=== PATIENT | male | born 1960 | race Caucasian/White ===

== ENCOUNTER 2017-02-09 17:51 | Emergency (ER) | payer BC ==
[2017-02-09] MEDS ORDERED: METHYLPREDNISOLONE INJ 125 MG/2 ML SDV ONE (18:26)
[2017-02-09] MEDS ORDERED: DIPHENHYDRAMINE HCL 50 MG/ML VIAL ONE (18:26)
[2017-02-09] MEDS ORDERED: EPINEPHRINE INJ/PF 1 MG/1 ML AMPULE IM PRN (18:28)
[2017-02-09] MEDS ORDERED: NORMAL SALINE 1000 ML 1,000 ML IV PRN ×2 (18:29→19:04)
[2017-02-09] MEDS ORDERED: MAGNESIUM SULFATE/D5W 100 ML IV ONE ×2 (18:29→19:31)
[2017-02-09] MEDS ORDERED: FAMOTIDINE INJ/PF 20 MG/2 ML SDV IV ONE (18:38)
[2017-02-09] MEDS ORDERED: IPRATROPIUM/ALBUTEROL 0.5-2.5 MG/3 ML AMPUL NEB ONE ×2 (18:43→19:31)
--- NOTE | 2017-02-09 19:37 | ER Document Report ---
ED Allergic Reaction - General Chief Complaint: Allergic Reaction Stated Complaint: SWELLING OF TONGUE Time seen by provider: 18:30 Mode of Arrival: Ambulatory Information source: Patient Notes: This is a 56-year-old man that presents to the emergency room with swelling of the tongue. The patient does have a history of COPD and intolerance to peanuts in the past (no history of anaphylaxis secondary to peanuts). Patient was at the [facility] yesterday and was eating peanuts. The patient states he felt fine at that time. He went to sleep at approximately 11 PM and felt fine. At one in the morning, he started having some tingling and pain on the left side of the tongue. The symptoms seemed to progress throughout the day. Shortly before arrival, he stated that his tongue felt very swollen and he couldn't swallow. - HPI Onset: Just prior to arrival Onset/Duration: Gradual Quality of pain: No pain Severity: None Pain Level: Denies Identified cause: No Swelling: Tongue Trouble swallowing / speaking: Moderate Associated symptoms: None Similar symptoms previously: No Recently seen / treated by doctor: No - Related Data Allergies/Adverse Reactions: bee stings Allergy (Uncoded 02/09/17 19:00) Past Medical History - General Information source: Patient - Social History Smoking Status: Current Every Day Smoker Cigarette use (# per day): Yes - half a pack per day Chew tobacco use (# tins/day): No Frequency of alcohol use: Occasional Drug Abuse: None Lives with: Spouse/Significant other Family History: None Patient has suicidal ideation: No Patient has homicidal ideation: No - Past Medical History Cardiac Medical History: Reports: None Pulmonary Medical History: Reports: Hx COPD EENT Medical History: Reports: None Neurological Medical History: Reports: None Endocrine Medical History: Reports: None Renal/ Medical History: Reports: None Malignancy Medical History: Reports None GI Medical History: Reports: None Musculoskeltal Medical History: Reports None Skin Medical History: Reports None Psychiatric Medical History: Reports: None Traumatic Medical History: Reports: None Infectious Medical History: Reports: None Surgical Hx: Negative - Immunizations Hx Diphtheria, Pertussis, Tetanus Vaccination: Yes Review of Systems - Review of Systems Constitutional: No symptoms reported. denies: Chills, Fever EENT: See HPI Cardiovascular: No symptoms reported Respiratory: See HPI Gastrointestinal: No symptoms reported Genitourinary: No symptoms reported Male Genitourinary: No symptoms reported Musculoskeletal: No symptoms reported Skin: No symptoms reported Hematologic/Lymphatic: No symptoms reported Neurological/Psychological: No symptoms reported Physical Exam - Vital signs Vitals: Pulse Ox 98 02/09/17 18:15 Notes: Physical exam: GENERAL: 56-year-old man, alert and oriented 3, apprehensive, HEAD: Atraumatic, normocephalic. EYES: Pupils equal round and reactive to light, extraocular movements intact, sclera anicteric, conjunctiva are normal. ENT: Swelling of the tongue, swelling of the floor the mouth. No uvula swelling or deviation. No stridor. No tenderness in the submental spaces. NECK: No fullness to the submental spaces. Normal range of motion, supple without lymphadenopathy or JVD. LUNGS: Breath sounds clear to auscultation bilaterally and equal. No wheezes rales or rhonchi. HEART: Regular rate and rhythm without murmurs, rubs or gallops. ABDOMEN: Soft, normoactive bowel sounds. No tenderness to palpation. No guarding, no rebound. No masses appreciated. EXTREMITIES: Normal range of motion, no pitting or edema. No clubbing or cyanosis. NEUROLOGICAL: Cranial nerves II through XII grossly intact. Normal speech, normal gait. PSYCH: Normal mood, normal affect. SKIN: Warm, Dry, normal turgor, no rashes or lesions noted. Course - Re-evaluation Re-evalutation: 02/09/17 19:35 Patient treated with IM epinephrine, IV Benadryl, IV Solu-Medrol, IV Pepcid and IV magnesium drip. Patient also received IV fluids and nebulizer treatments. He states that his symptoms are significantly improved. He is now able to talk (he was having difficulty with that before) and is now able to swallow (which he states he was not able to do before). We will continue to watch closely. His tongue seems to have been improved, he is certainly more comfortable, he still has some swelling to the sublingual glands underneath the tongue (they are much improved). 02/10/17 00:45 Patient observed 6 hours in the emergency room: His been doing exceptionally well at this point. He feels good enough to go home. In the last 5 hours, I have been in the room multiple times and he is progressively gotten better. He will be discharged home with steroids, Benadryl, Pepcid and an EpiPen. I have given him an oral dose of prednisone, Pepcid and Benadryl before discharge. I' ve had a long discussion with him and his who is at the bedside. I've advised them to avoid any peanut products and to follow-up with a operations lieutenant when they are back in [place] (they plan on leaving in 2 days) - Vital Signs Vital signs: Temp Pulse Resp BP Pulse Ox 98.4 F 92 21 H 140/95 H 95 02/09/17 18:27 02/09/17 18:27 02/10/17 00:00 02/10/17 00:00 02/10/17 00:00 - Laboratory Result Diagrams: 02/09/17 20:07 02/09/17 20:07 Laboratory results interpreted by me: 02/09/17 02/09/17 20:07 20:07 WBC 12.4 H Seg Neutrophils % 88.3 H Lymphocytes % 7.6 L Absolute Neutrophils 10.9 H Sodium 147.2 H Discharge - Discharge Clinical Impression: acute allergic reaction Condition: Stable Disposition: HOME, SELF-CARE Instructions: Acute Allergic Reaction ([facility]) Additional Instructions: Recommendations: I would avoid all peanut products until following up with an operations lieutenant when back in [place]. The operations lieutenant can sometimes do testing to see what the actual trigger was for the allergic reaction and may be able to provide with sensitivity testing. If he started having worsening swelling around the mouth: First Take the Benadryl and IM epinephrine (the EpiPen) and then return to the emergency room. Return to the ER if you have any concerns about getting worse. Take the Benadryl every 6 hours for the next few days, then take it for itching or swelling afterwards. Start the Medrol Dosepak tomorrow morning Take the Pepcid as prescribed Prescriptions: Diphenhydramine HCl [Benadryl 25 mg Capsule] 25 mg PO Q6H #20 capsule Epinephrine [Epipen 2-Myles] 0.3 mg IM ONCE PRN #2 ml PRN Reason: Famotidine [Pepcid 20 mg Tablet] 20 mg PO BID #12 tablet Methylprednisolone [Medrol 4 mg Dosepack 21 Tab/Pack] 4 mg PO ASDIR PRN #21 tab.ds.pk PRN Reason:
--- NOTE | 2017-02-09 20:06 | EKG REPORT ---
SEVERITY:- ABNORMAL ECG - SINUS RHYTHM PROBABLE LEFT ATRIAL ABNORMALITY BORDERLINE LEFT AXIS DEVIATION CONSIDER ANTEROSEPTAL INFARCT : Confirmed by: Coty Escalante MD 09-Feb-2017 20:05:05
[2017-02-09 20:14] LABS: ABSOLUTE EOSINOPHILS # (AUTO) 0.1 10^3/uL (0.0-0.6); ABSOLUTE LYMPHOCYTES (AUTO) 0.9 10^3/uL (0.5-4.7); ABSOLUTE MONOCYTES (AUTO) 0.4 10^3/uL (0.1-1.4); ABSOLUTE NEUT (AUTO) 10.9 10^3/uL (1.7-8.2); BASOPHILS % (AUTO) 0.2 % (0-2); EOSINOPHILS % (AUTO) 0.8 % (0-6); HEMATOCRIT 45.7 % (37.9-51.0); HEMOGLOBIN 15.7 g/dL (13.5-17.0); HGB HCT DIFFERENCE 1.4; LYMPHOCYTES % (AUTO) 7.6 % (13-45); MEAN CORPUSCULAR HEMOGLOBIN 31.5 pg (27.0-33.4); MEAN CORPUSCULAR HGB CONC 34.4 g/dL (32.0-36.0); MEAN CORPUSCULAR VOLUME 92 fl (80-97); MONOCYTES % (AUTO) 3.1 % (3-13); RED BLOOD COUNT 4.99 10^6/uL (4.35-5.55); RED CELL DISTRIBUTION WIDTH 13.8 % (11.5-14.0); SEGMENTED NEUTROPHILS % (AUTO) 88.3 % (42-78); WHITE BLOOD COUNT 12.4 10^3/uL (4.0-10.5)
[2017-02-09 20:26] LABS: PROTHROMBIN TIME 12.4 SEC (11.4-15.4)
[2017-02-09 20:35] LABS: ALANINE AMINOTRANSFERASE 39 U/L (21-72); ALBUMIN 4.4 g/dL (3.5-5.0); ALKALINE PHOSPHATASE 94 U/L (38-126); ANION GAP 13 (5-19); ASPARTATE AMINO TRANSFERASE 23 U/L (17-59); BILIRUBIN,DIRECT 0.4 mg/dL (0.0-0.4); BILIRUBIN,TOTAL 0.8 mg/dL (0.2-1.3); BLOOD UREA NITROGEN 10 mg/dL (7-20); CALCIUM 9.4 mg/dL (8.4-10.2); CARBON DIOXIDE 27 mmol/L (22-30); CHLORIDE 107 mmol/L (98-107); CREATINE KINASE 155 U/L (55-170); CREATININE RESULT 0.84 mg/dL (0.52-1.25); GLUCOSE 87 mg/dL (75-110); POTASSIUM 4.1 mmol/L (3.6-5.0); SODIUM 147.2 mmol/L (137-145); TOTAL PROTEIN 7.3 g/dL (6.3-8.2)
[2017-02-09 20:46] LABS: CREATINE KINASE MB 1.48 ng/mL (<4.55)
[2017-02-09 21:06] LABS: TROPONIN I < 0.012 ng/mL
[2017-02-10] MEDS ORDERED: DIPHENHYDRAMINE HCL 25 MG CAPSULE PO ONE (00:20)
[2017-02-10] MEDS ORDERED: PREDNISONE 20 MG TABLET PO ONE (00:21)
[2017-02-10] MEDS ORDERED: FAMOTIDINE 20 MG TABLET PO ONE (00:21)
[2017-02-10 01:09] VITALS: BP 140/79
== END 2017-02-10 01:00 | disposition home or self-care (01) ==
LOC: ER 17:51
DX: T78.40XA Allergy, unspecified, initial encounter (principal); J44.9 Chronic obstructive pulmonary disease, unspecified; F17.210 Nicotine dependence, cigarettes, uncomplicated
CPT/HCPCS: 93005; 99285; 96372; 96375; 96365; 36415; 82553; 82550; 85025; 85610; 80053; 84484; 93010; J1200; J0171; J2930; J3475; J7030; S0028